=== PATIENT | male | born 1950 | race American Indian/Alaskan Native ===

== ENCOUNTER 2022-06-24 03:03 | Emergency (ER) | payer SELFPAY ==
--- NOTE | 2022-06-24 09:54 | Event Note ---
ED Screening Note ED Screening Note: remains in WR with headache has been here all night Vital Signs 06/24/22 03:06 Temperature 98.2 F Pulse Rate 90 Respiratory 16 Rate Blood Pressure 130/90 [Right] O2 Sat by Pulse 98 Oximetry hx cva This initial assessment/diagnostic orders/clinical plan/treatment(s) is/are subject to change based on patients health status, clinical progression and re- assessment by fellow clinical providers in the ED. Further treatment and workup at subsequent clinical providers discretion. Patient/guardian urged not to elope from the ED as their condition may be serious if not clinically assessed and managed. Initial orders include: waiting on main ER bed
[2022-06-24 17:12] LABS: Hematocrit 47.3 % (35.5-45.6); Hemoglobin 16.2 gm/dl (11.8-15.2); Mean Corpuscular HGB Conc 34 % (32-34); Mean Corpuscular Volume 94 fl (84-94); Platelet Count 264 K/mm3 (140-440); Red Blood Count 5.05 M/mm3 (3.65-5.03); Red Cell Distribution Width 14.4 % (13.2-15.2)
[2022-06-24 17:27] LABS: Alanine Aminotransferase 30 units/L (7-56); Albumin 4.5 g/dL (3.9-5); BUN/Creatinine Ratio 13; Blood Urea Nitrogen 10 mg/dL (9-20); Calcium 9.3 mg/dL (8.4-10.2); Hemolysis Index 4
--- NOTE | 2022-06-24 17:57 | Emergency Department Report ---
HPI - General Chief Complaint: Headache Time Seen by Provider: 06/24/22 17:42 - HPI HPI: Room 5 The patient is a 72-year-old male present with a chief complaint of headache and dizziness. The patient states someone told him he passed out and fell last night striking his head. Patient is amnestic to the event and states he does not remember anything. Patient states he is now dizzy and has a headache. Patient does not appear to be in acute distress as I enter the room he is eating Jell-O out of a container without utensils ED Past Medical Hx - Past Medical History Hx CVA: Yes Hx Heart Attack/AMI: Yes - Surgical History Additional Surgical History: Unsure - Family History Family history: no significant - Social History Smoking Status: Current Every Day Smoker (1/2 pack/day) Substance Use Type: None (Denies illicit drug use) ED Review of Systems ROS: Stated complaint: HEADACHE Other details as noted in HPI Constitutional: no symptoms reported Eyes: denies: eye pain ENT: denies: throat pain Respiratory: no symptoms reported Cardiovascular: denies: chest pain Endocrine: no symptoms reported Gastrointestinal: denies: abdominal pain Genitourinary: denies: dysuria Musculoskeletal: denies: back pain Neurological: headache, vertigo Physical Exam - Physical Exam Vital Signs: Vital Signs 06/24/22 03:06 Temperature 98.2 F Pulse Rate 90 Respiratory 16 Rate Blood Pressure 130/90 [Right] O2 Sat by Pulse 98 Oximetry Physical Exam: GENERAL: The patient is well-developed well-nourished male lying on stretcher not appearing to be in acute distress. Patient eating Jell-O without utensils as I enter the room HEENT: Normocephalic. Atraumatic. Extraocular motions are intact. Patient has moist mucous membranes. NECK: Supple. Trachea midline CHEST/LUNGS: Clear to auscultation. There is no respiratory distress noted. HEART/CARDIOVASCULAR: Regular. There is no tachycardia. There is no gallop rub or murmur. ABDOMEN: Abdomen is soft, nontender. Patient has normal bowel sounds. There is no abdominal distention. SKIN: There is no rash. There is no edema. There is no diaphoresis. NEURO: The patient is awake, alert, and oriented. The patient is cooperative. The patient has no focal neurologic deficits. The patient has normal speech. Cranial nerves II through XII grossly intact. GCS 15 MUSCULOSKELETAL: There is no evidence of acute injury. ED Course Vital Signs 06/24/22 03:06 Temperature 98.2 F Pulse Rate 90 Respiratory 16 Rate Blood Pressure 130/90 [Right] O2 Sat by Pulse 98 Oximetry ED Medical Decision Making - Lab Data Result diagrams: 06/24/22 16:50 06/24/22 16:50 - Radiology Data Radiology results: report reviewed (CT head), image reviewed (CT head) [facility] [address] [place] [address] Cat Scan Report Signed Patient: RIDGE SANTIAGO MR#: [id number] : 1950 Acct:[id number] Age/Sex: 72 / M ADM Date: 06/24/22 Loc: ED Attending Dr: Ordering Physician: PATRICK GARCIA Date of Service: 06/24/22 Procedure(s): CT head/brain wo con Accession Number(s): [id number] cc: PATRICK GARCIA CT head/brain wo con INDICATION / CLINICAL INFORMATION: 72 years Male; AMS. TECHNIQUE: Routine CT head without contrast. All CT scans at this location are performed using CT dose reduction for ALARA by means of automated exposure control. COMPARISON: None. 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 It would be difficult to evaluate for small areas of shanique-infarct ischemia without diffusion imaging by MRI. No acute hemorrhage, mass effect, midline shift, hydrocephalus, or acute, large territorial infarct. No signs of significant atrophy or chronic infarct. There are [id number] areas of decreased attenuation in the white matter of the cerebral hemispheres. These are nonspecific findings and may be related to microangiopathy (hypertension, diabetes, atherosclerosis), given the patient's age. CRANIOCERVICAL JUNCTION: No significant abnormality. ORBITS: No significant abnormality of visualized orbits. SINUSES / MASTOIDS: Prior mastoidectomy noted on the left. ADDITIONAL FINDINGS: None. IMPRESSION: 1. No focal mass, hemorrhage, hydrocephalus, or acute, large territorial infarct. Please correlate with dermatomal distribution of patient's symptoms, if present. Signer Name: Bennett Gomez MD, III Signed: 06/24/2022 5:54 PM Workstation Name: [id number] Transcribed By: HR Dictated By: Bennett Gomez MD Electronically Authenticated By: Bennett Gomez MD Signed Date/Time: 06/24/221753 DD/ 44 TD/TT: Critical care attestation.: If time is entered above; I have spent that time in minutes in the direct care of this critically ill patient, excluding procedure time. ED Disposition Clinical Impression: Vertigo, Homelessness Disposition: 30 STILL A PATIENT Is pt being admited?: No Does the pt Need Aspirin: No Condition: Stable Time of Disposition: 00:10 (Awaiting case management)
--- NOTE | 2022-06-24 17:58 | Cat Scan Report ---
CT head/brain wo con INDICATION / CLINICAL INFORMATION: 72 years Male; AMS. TECHNIQUE: Routine CT head without contrast. All CT scans at this location are performed using CT dos e reduction for ALARA by means of automated exposure control. COMPARISON: None. FINDINGS: BRAIN / INTRACRANIAL CONTENTS: Old, small branch MCA infarct seen in the anterior parietal lobe on th e right. It would be difficult to evaluate for small areas of shanique-infarct ischemia without diffusion imaging by MRI. No acute hemorrhage, mass effect, midline shift, hydrocephalus, or acute, large territorial infarct. No signs of significant atrophy or chronic infarct. There are [id number] areas of decreased attenuation in the white matter of the cerebral hemisph eres. These are nonspecific findings and may be related to microangiopathy (hypertension, diabetes, a therosclerosis), given the patient's age. CRANIOCERVICAL JUNCTION: No significant abnormality. ORBITS: No significant abnormality of visualized orbits. SINUSES / MASTOIDS: Prior mastoidectomy noted on the left. ADDITIONAL FINDINGS: None. IMPRESSION: 1. No focal mass, hemorrhage, hydrocephalus, or acute, large territorial infarct. Please correlate wi th dermatomal distribution of patient's symptoms, if present. Signer Name: Bennett Gomez MD, III Signed: 06/24/2022 5:54 PM Workstation Name: [id number]
[2022-06-24] MEDS ORDERED: MECLIZINE 25 MG TAB PO ONE (18:25)
[2022-06-25 03:47] LABS: Mucus,Urine 3+ /HPF
[2022-06-25 03:49] LABS: Bilirubin,Urine Negative (Negative); Blood,Urine Negative (Negative); Color,Urine Yellow (Yellow)
[2022-06-25 07:32] VITALS: BP 122/75
--- NOTE | 2022-06-25 14:24 | Electrocardiograph Report ---
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
== END 2022-06-25 10:33 | disposition still patient (30) ==
LOC: ED 03:03
DX: R42 Dizziness and giddiness (principal); Z59.00 Homelessness unspecified; I21.9 Acute myocardial infarction, unspecified; Z86.73 Personal history of transient ischemic attack (TIA), and cerebral infarction without residual deficits; F17.200 Nicotine dependence, unspecified, uncomplicated
CPT/HCPCS: 36415; 70450; 80053; 80320; 81001; 84484; 85027; 93005; 99284; G0480